=== PATIENT | female | born 1950 | race Caucasian/White ===

== ENCOUNTER 2023-09-19 04:58 | Inpatient (IN) | payer MEDICARE, MEDICAID ==
[2023-09-19] VITALS (715 sets, daily range): BP systolic 104–145; BP diastolic 51–63; PULSE 61–66; TEMP 97.1–99.1; O2SAT 81–99
[~2023-09-19] VITALS: Ht 177.8 cm; Wt 78.7 kg
[2023-09-19] MEDS ORDERED: PHOSPHA 250 NEU1 TAB PO (08:45)
[2023-09-19] MEDS ORDERED: CELLCEPT 5500 MG/TAB PO (08:47)
[2023-09-19] MEDS ORDERED: CALCITRIOL PO (08:55)
[2023-09-19] MEDS ORDERED: PROGRAF 1MG1 MG PO (08:55)
[2023-09-19 08:59] LABS: HEMATOCRIT 37.6 % (37.0-47.0); HEMOGLOBIN 12.5 g/dl (12.5-16.0); MEAN CELL VOLUME 87 fl (80.0-100.0); MEAN CORPUSCULAR HEMOGLOBIN 29 pg (27-31); MEAN CORPUSCULAR HGB CONC 33 g/dl (33.0-37.0); MEAN PLATELET VOLUME 13.3 fl (7.4-10.4); PLATELET COUNT 199 K/mm3 (130-400); RED BLOOD COUNT 4.33 M/mm3 (4.10-5.30); REDCELL DISTRIBUTION WIDTH-CV 13.6 % (11.5-14.5)
[2023-09-19] MEDS ORDERED: SIMBRINZA 0.2%-18 ML OU (09:01)
[2023-09-19] MEDS ORDERED: LANTUS SOLOS100 U/ML SQ (09:02)
[2023-09-19] MEDS ORDERED: XALATAN EYE DROPS OU (09:03)
[2023-09-19] MEDS ORDERED: ISTALOL 2.5 ML2.5 ML OS (09:03)
[2023-09-19 09:05] LABS: INR 1.1 (0.8-3.0); PROTHROMBIN TIME 12.2 SECONDS (9.7-12.8)
[2023-09-19 09:14] LABS: C-REACTIVE PROTEIN 13.25 mg/dL (0.00-0.50); MAGNESIUM 1.7 mg/dL (1.6-2.6); PHOSPHOROUS 1.7 mg/dL (2.3-4.7)
[2023-09-19 09:29] LABS: PARTIAL THROMBOPLASTIN TIME 29.4 SECONDS (26.0-37.0)
[2023-09-19 09:42] LABS: BAND 12 % (0-10); LYMPHOCYTE 2 % (20.0-51.0); NEUTROPHILS 83 % (42.0-75.2)
[2023-09-19 09:44] LABS: PLATELET ESTIMATE DECREASED (NORMAL)
--- NOTE | 2023-09-19 09:59 | NUR ---
PATIENT SATURATION THIS AM HAS BEEN 88 TO 92% ON OXYMASK. PATIENT HAS BEEN PLACED ON AIRVO AND SEEMS TO BE TOLERATING WELL. LABS HAVE SINCE BEEN DRAWN, ABG.
[2023-09-19 11:36] LABS: CALCIUM 8.9 mg/dL (8.4-10.2); CREATININE, serum 1.29 mg/dL (0.57-1.11); POTASSIUM 4.8 mmol/L (3.5-4.5)
[2023-09-19 11:45] LABS: TROPONIN-I 0.04 ng/mL (0.00-0.033)
[2023-09-19 14:40] LABS: PROCALCITONIN 0.09 ng/mL (0.00-0.09)
--- NOTE | 2023-09-19 19:33 | NUR ---
REPORT RECEIVED FROM ALAYNA GONSALES. PT RESTING IN BED AT THIS TIME, BED IN LOW POSITION, CALL LIGHT WITHIN REACH, AND VSS. NO NEEDS ANTICIPATED AT THIS TIME.
--- NOTE | 2023-09-19 20:07 | NUR ---
PT RESTING IN BED AND IS A&O AT THIS TIME. 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 VSS. CARE PLAN AND GOALS REVIEWED AT THIS TIME. BED IN LOW POSITION, CALL LIGHT IN REACH, AND ALL NEEDS MET AT THIS TIME. ENCOURAGED TO USE CALL LIGHT FOR NEEDS.
[2023-09-19 20:36] LABS: COLLECTION METHOD CLEAN CATCH
[2023-09-19 20:41] LABS: URINE APPEARANCE Clear (CLEAR/HAZY); URINE BLOOD Negative (NEGATIVE); URINE COLOR Yellow (YELLOW); URINE GLUCOSE Negative (NEGATIVE); URINE KETONE Negative (NEGATIVE); URINE NITRATE Negative (NEGATIVE); URINE PROTEIN(semi-quant) 3+ (NEGATIVE)
[2023-09-19 20:50] LABS: URINE RBC 0-2 /hpf (0-2)
[2023-09-19 20:51] LABS: URINE BACTERIA Rare /hpf (NONE SEEN)
--- NOTE | 2023-09-19 21:32 | NUR ---
DURING INITAIL SHIFT ASSESSMENT PT REPORTS SHE IS "BLIND". PT NOTED TO OPEN EYES AND FOLLOW RN I WALK AROUND THE ROOM. PT REPORTS SHE HAS A VERY SMALL AMOUNT OF VISION.
[2023-09-20] VITALS (578 sets, daily range): BP systolic 143–164; BP diastolic 70–79; PULSE 55–72; TEMP 97.9–98.2; O2SAT 81–98
--- NOTE | 2023-09-20 | NUR ---
VSS WITH AN UNSUSTAINED SPO2 OF 88-89%. PT WILL DROP TO 88-89% FOR 10-30 SECONDS AND THEN BACK TO 90-93%. RT NOTIFIED AND PLANS TO COME ASSESS.
--- NOTE | 2023-09-20 03:05 | NUR ---
PT ON 50L, 85% VIA BIPAP AT THIS TIME AND O2 SAT BOUNCING FROM 88-90%. RT NOTIFIED AND REPORT THEY WILL COME TO ASSESS AND TREAT.
[2023-09-20 05:42] LABS: HEMATOCRIT 38.1 % (37.0-47.0); HEMOGLOBIN 12.5 g/dl (12.5-16.0); MEAN CELL VOLUME 87 fl (80.0-100.0); MEAN CORPUSCULAR HEMOGLOBIN 29 pg (27-31); MEAN CORPUSCULAR HGB CONC 33 g/dl (33.0-37.0); MEAN PLATELET VOLUME 14.6 fl (7.4-10.4); PLATELET COUNT 187 K/mm3 (130-400); RED BLOOD COUNT 4.36 M/mm3 (4.10-5.30); REDCELL DISTRIBUTION WIDTH-CV 13.7 % (11.5-14.5)
[2023-09-20 06:06] LABS: CALCIUM 8.6 mg/dL (8.4-10.2); CREATININE, serum 1.24 mg/dL (0.57-1.11); MAGNESIUM 2.2 mg/dL (1.6-2.6); POTASSIUM 5.3 mmol/L (3.5-4.5)
[2023-09-20 07:00] LABS: BAND 8 % (0-10); LYMPHOCYTE 3 % (20.0-51.0); NEUTROPHILS 88 % (42.0-75.2); OVALOCYTES 1+; PLATELET ESTIMATE NORMAL (NORMAL)
[2023-09-20 07:01] LABS: BURR CELLS 1+
--- NOTE | 2023-09-20 09:00 | NUR ---
RECEIVED REPORT FROM NIGHTSHIFT RNPAVITHRA. PATIENT RESTING IN BED WITH EYES CLOSED. BED IN A LOW POSITION. CALL LIGHT WITHIN REACH. LABS, MEDICATIONS, AND ORDERS ALL REVIEWED AND ACKNOWLEDGED.
--- NOTE | 2023-09-20 09:07 | NUR ---
HEAD TO TOE ASSESSMENT COMPLETED. PATIENT ALERT AND ORIENTED. PATIENT REMAINS MAXED ON AIRVO AT THIS TIME. PUPILS EQUAL AND REACTIVE. HEART SOUNDS REGULAR WITH S1 AND S2 NOTED. LUNG SOUNDS ARE COARSE BILATERALLY WITH DIMINISHED SOUNDS IN THE BASES BILATERALLY. BOWEL SOUNDS ACTIVE IN ALL QUADRANTS. PATIENT USES BEDSIDE COMMODE TO VOID WITH 1-2X ASSIST. PATIENT'S PULSES ARE PRESENT AND EQUAL BILATERALLY IN UPPER AND LOWER EXTREMITIES. PATIENT ABLE TO TAKE MEDICATIONS WITHOUT ANY PROBLEMS. BED IN A LOW POSITION. CALL LIGHT WITHIN REACH.
[2023-09-21] VITALS (502 sets, daily range): BP systolic 136–161; BP diastolic 59–84; PULSE 54–78; TEMP 97.7–98.6; O2SAT 90–100
[2023-09-21 06:23] LABS: BASO % 0.1 % (0.0-2.0); GRAN # 11.1 K/mm3 (1.4-6.5); GRAN % 88.2 % (42.2-75.2); HEMATOCRIT 37.9 % (37.0-47.0); HEMOGLOBIN 12.8 g/dl (12.5-16.0); LYMPH # 0.5 K/mm3 (1.2-3.4); LYMPH % 3.9 % (20.0-51.0); MEAN CELL VOLUME 87 fl (80.0-100.0); MEAN CORPUSCULAR HEMOGLOBIN 29 pg (27-31); MEAN CORPUSCULAR HGB CONC 34 g/dl (33.0-37.0); MEAN PLATELET VOLUME 14.2 fl (7.4-10.4); MONO # 0.8 K/mm3 (0.1-0.6); MONO % 6.5 % (1.7-9.3); PLATELET COUNT 213 K/mm3 (130-400); RED BLOOD COUNT 4.38 M/mm3 (4.10-5.30); REDCELL DISTRIBUTION WIDTH-CV 13.9 % (11.5-14.5)
[2023-09-21 06:36] LABS: CALCIUM 8.5 mg/dL (8.4-10.2); CREATININE, serum 1.31 mg/dL (0.57-1.11); POTASSIUM 4.9 mmol/L (3.5-4.5)
--- NOTE | 2023-09-21 09:24 | NUR ---
PATIENT SEEMS TO BE RESTING WITH EYES CLOSED, AIRVO ON 54L, SATURATIONS ARE CONSISTENTLY BETWEEN 92 AND 95%. MINIMAL SHORTNESS OF BREATH WITH ACTIVITY, DENIES CHEST PAIN. INFUSING ZOSYN AT THIS TIME, BOTH IVS FLUSH WELL, PATIENT IS VOIDING WITHOUT DIFFICULTY. CONTINUING TO MONITOR FOR SIGNIFICANT CHANGES.
[2023-09-21] MEDS ORDERED: MAG-OX 400400 MG/TAB PO (11:18)
[2023-09-21] MEDS ORDERED: NEURONTIN100 MG/CAP PO ×2 (11:18)
[2023-09-21] MEDS ORDERED: COREG 6.256.25 MG/TA PO (11:19)
[2023-09-21] MEDS ORDERED: PLAVIX 75MG TAB75 MG PO (11:19)
[2023-09-21] MEDS ORDERED: PROTONIX 40MG T40 MG PO (11:19)
[2023-09-21] MEDS ORDERED: LIPITOR 40MG TA40 MG PO (11:19)
[2023-09-21] MEDS ORDERED: PREDNISONE 5MG5 MG PO (11:25)
[2023-09-21] MEDS ORDERED: LEVEMIR FLEX100 U/ML SQ (11:25)
--- NOTE | 2023-09-21 15:00 | NUR ---
Patient had a moment of chest tightness and shortness of air after getting to the bedside commode. RT was called and albuterol was given. Patient stated that the albuterol helped and that she no longer has chest pain or shortness of breath.
--- NOTE | 2023-09-21 19:05 | NUR ---
Received report from ALAYNA Laguerre.
--- NOTE | 2023-09-21 21:05 | NUR ---
Patient resting quietly in bed. Remains on AirVo receiving 50L 90% FiO2, tolerating well. Denies pain or discomfort. Vitals within normal limits. Required heavy one-person assist to pivot to and from commode. No further needs noted at this time.
[2023-09-22] VITALS (7 sets, daily range): BP systolic 105–170; BP diastolic 68–86; PULSE 57–74; TEMP 97.7–98.3; O2SAT 93
[2023-09-22 04:46] LABS: BASO % 0.1 % (0.0-2.0); GRAN # 8.9 K/mm3 (1.4-6.5); GRAN % 85.2 % (42.2-75.2); HEMATOCRIT 37.2 % (37.0-47.0); HEMOGLOBIN 12.4 g/dl (12.5-16.0); LYMPH # 0.5 K/mm3 (1.2-3.4); MEAN CELL VOLUME 87 fl (80.0-100.0); MEAN CORPUSCULAR HEMOGLOBIN 29 pg (27-31); MEAN CORPUSCULAR HGB CONC 33 g/dl (33.0-37.0); MONO # 0.9 K/mm3 (0.1-0.6); MONO % 8.3 % (1.7-9.3); PLATELET COUNT 218 K/mm3 (130-400); RED BLOOD COUNT 4.28 M/mm3 (4.10-5.30); REDCELL DISTRIBUTION WIDTH-CV 13.7 % (11.5-14.5)
[2023-09-22 05:04] LABS: CALCIUM 8.5 mg/dL (8.4-10.2); CREATININE, serum 1.3 mg/dL (0.57-1.11); POTASSIUM 4.6 mmol/L (3.5-4.5)
--- NOTE | 2023-09-22 07:00 | NUR ---
Report received from ALAYNA Goodson; patient currently resting in bed and remains on Airvo. Patient has no meds or fluids running through her peripheral lines. Patient has no other lines or tubes in place at this time. Patient's vital signs are within normal limits this morning, although patient desats if cannula is taken off.
--- NOTE | 2023-09-22 08:52 | NUR ---
rolled materials worker called pt's dtr, Mayra [phone] due to being in isolation. Mayra informed SW her mother lives alone in [place]. She reports that the PCP is Dr. Baker and she obtains medications from [facility] with some difficulty. SW discussed [facility] and recieving samples/coupons from the prescribing provider to lower costs. Pt uses a [facility] for DME. She is independent with most ADLS, but dtr reports she needs help with bathing and cooking. Pt does not have a DPOA-HC, is not , and has 3 children. ODILON advised what a DPOA-HC is for her mother and the need to discuss it. Mayra informed SW pt wants to return home, but is aware that she will need more help. ODILON discussed options for placement such as SNF. SW provided her number to daughter.
[2023-09-23] VITALS (150 sets, daily range): BP systolic 153–175; BP diastolic 63–82; PULSE 60–65; TEMP 97.7–98.4; O2SAT 70–99
[2023-09-23 05:53] LABS: BASO % 0.2 % (0.0-2.0); EOS % 0.2 % (0.0-4.0); GRAN # 9.1 K/mm3 (1.4-6.5); HEMATOCRIT 39.5 % (37.0-47.0); HEMOGLOBIN 12.6 g/dl (12.5-16.0); LYMPH # 0.5 K/mm3 (1.2-3.4); LYMPH % 4.4 % (20.0-51.0); MEAN CELL VOLUME 89 fl (80.0-100.0); MEAN CORPUSCULAR HEMOGLOBIN 28 pg (27-31); MEAN CORPUSCULAR HGB CONC 32 g/dl (33.0-37.0); MONO # 0.6 K/mm3 (0.1-0.6); MONO % 5.8 % (1.7-9.3); PLATELET COUNT 206 K/mm3 (130-400); RED BLOOD COUNT 4.45 M/mm3 (4.10-5.30); REDCELL DISTRIBUTION WIDTH-CV 13.6 % (11.5-14.5)
[2023-09-23 06:08] LABS: CALCIUM 8.5 mg/dL (8.4-10.2); CREATININE, serum 1.09 mg/dL (0.57-1.11); MAGNESIUM 1.8 mg/dL (1.6-2.6); POTASSIUM 4.3 mmol/L (3.5-4.5)
--- NOTE | 2023-09-23 13:49 | NUR ---
cut in worker was informed by Dr. Josef Castillo that patient would need a [facility] referral. SW faxed a referral to [facility].
--- NOTE | 2023-09-23 15:03 | NUR ---
perinatal social worker recieved a call from ALAYNA Ferguson requesting SW speak to family about [facility] referral. She advised information had been provided already. ODILON spoke with many family members and dtrMayra regarding [facility]. They inquired about why pt needs to go, potential discharge date, next steps, locations, and transport options. ODILON advised she would likely go by EMS transport once a location is determined and this is due to her increasing need for oxygenation on Airvo. The family was agreeable. They wanted to add other contacts to the visitor list. ODILON relayed to dtr to inform nurse's station of this. ODILON spoke with ALAYNA Ferguson and relayed the conversation. She agreed pt wll likely transport by EMS on Bipap.
--- NOTE | 2023-09-23 16:02 | NUR ---
yard warehouse worker recieved a call from Merissa at [facility] who informs SW they can accept patient tomorrow. ODILON advised she will set up transport by EMS. ODILON informed Dr. Josef Castillo and Charge Nurse Phyllis. ODILON contacted [facility] to arrange a 10am transport. ODILON provided all information. ODILON confirmed patient will go to [facility], room 126, and recieving physician is Dr. Solis. ODILON updated [facility]. ODILON spoke with carol ann Nunez who was agreeable to this and will let the family know. Discharge Plan: 10am [facility] to [facility]
[2023-09-24] VITALS (32 sets, daily range): BP systolic 119–152; BP diastolic 58–84; PULSE 61–68; TEMP 97.2–98.3; O2SAT 92–95
[2023-09-24 05:46] LABS: BASO % 0.2 % (0.0-2.0); GRAN # 8.2 K/mm3 (1.4-6.5); GRAN % 89.3 % (42.2-75.2); HEMATOCRIT 37.7 % (37.0-47.0); HEMOGLOBIN 12.4 g/dl (12.5-16.0); LYMPH # 0.4 K/mm3 (1.2-3.4); LYMPH % 4.5 % (20.0-51.0); MEAN CELL VOLUME 86 fl (80.0-100.0); MEAN CORPUSCULAR HEMOGLOBIN 28 pg (27-31); MEAN CORPUSCULAR HGB CONC 33 g/dl (33.0-37.0); MONO # 0.5 K/mm3 (0.1-0.6); PLATELET COUNT 197 K/mm3 (130-400); RED BLOOD COUNT 4.38 M/mm3 (4.10-5.30); REDCELL DISTRIBUTION WIDTH-CV 13.3 % (11.5-14.5)
[2023-09-24 05:57] LABS: CALCIUM 8.7 mg/dL (8.4-10.2); CREATININE, serum 1.14 mg/dL (0.57-1.11); MAGNESIUM 1.8 mg/dL (1.6-2.6); POTASSIUM 4.4 mmol/L (3.5-4.5)
--- NOTE | 2023-09-24 07:13 | NUR ---
Report received from ALAYNA Botello; patient currently resting in bed with no fluids or meds running through her peripheral line. Patient is on Airvo maxed out at 60 lpm and 90%; patient has no other lines or tubes in place at this time. Patient should be leaving this morning for [facility]; all vital signs are within normal limits this morning.
[2023-09-24] MEDS ORDERED: LOVENOX 8080 MG/0.8 SQ (08:55)
[2023-09-24] MEDS ORDERED: RT Anoro Ellipta IH (08:55)
[2023-09-24] MEDS ORDERED: RT Albuterol HFA MDI IH ×2 (08:55)
[2023-09-24] MEDS ORDERED: ALPHAGAN 10 ML10 ML OP (08:56)
[2023-09-24] MEDS ORDERED: [UNRECOGNIZED DRUG - OTHER] IH (08:56)
[2023-09-24] MEDS ORDERED: CELLCEPT 250MG250 MG PO (08:57)
[2023-09-24] MEDS ORDERED: PROGRAF 1MG1 MG PO (08:57)
[2023-09-24] MEDS ORDERED: DOXYCYCLINE 10100 MG PO (08:59)
[2023-09-24] MEDS ORDERED: LIPITOR 40MG TA40 MG PO (09:02)
[2023-09-24] MEDS ORDERED: COREG 6.256.25 MG/TA PO (09:02)
[2023-09-24] MEDS ORDERED: MAG-OX 400400 MG/TAB PO (09:03)
[2023-09-24] MEDS ORDERED: DEXAMETHASON10 MG/ML IV (09:04)
--- NOTE | 2023-09-24 09:27 | NUR ---
fruit harvest worker faxed discharge orders to Merissa at [facility]. ALAYNA Whittington completed [facility] forms for transfer. ODILON called Mayra maharaj and completed IM from Medicare. Copy in packet and original in chart. Discharge Plan: 10am [facility]. transport to [facility] [place]
--- NOTE | 2023-09-24 10:15 | NUR ---
Reported off to ALAYNA Whipple, at [facility] in , phone number [phone]. Patient picked up by [facility] and taken via ambulance; patient was taken on oxygen and zosyn running through her peripheral IV. Patient's family was in the room when patient left and left with patient's belongings and will meet her there; patient went to room 126. Patient's vital signs were within normal limits and patient was stable upon discharge.
--- NOTE | 2023-09-24 10:57 | NUR ---
Social was informed by Merissa at [facility] they do not have a SS for patient. She is also requesting a copy of the insurance card as a new requirement. ODILON spoke with [employer] Laurel who advised there is not an insurance card or SS on file for pt. ODILON informed Merissa santamaria [facility] of this. ODILON left a voicemail with registration at [facility]. ODILON spoke with dtrMayra who states patient can recall her SS and she can take pt's insurance card with her to [facility]. ODILON informed Merissa santamaria [facility] of this.
== END 2023-09-24 10:02 | DRG 177 ==
LOC: IMCU 04:58 → ICU 05:39
PROVIDERS: Internal Medicine Pulmonary Disease; Nurse Practitioner Primary Care; ADMIT Internal Medicine
PROC: XW033E5 Introduction of Remdesivir Anti-infective into Peripheral Vein, Percutaneous Approach, New Technology Group 5 (ICD-10-PCS; principal; 2023-09-19)
PROC: 5A0955A Assistance with Respiratory Ventilation, Greater than 96 Consecutive Hours, High Flow/Velocity Cannula (ICD-10-PCS; 2023-09-19)
PROC: 5A09357 Assistance with Respiratory Ventilation, Less than 24 Consecutive Hours, Continuous Positive Airway Pressure (ICD-10-PCS; 2023-09-24)
DX: U07.1 COVID-19 (principal); J12.82 Pneumonia due to coronavirus disease 2019; J96.01 Acute respiratory failure with hypoxia; Z94.0 Kidney transplant status; D84.9 Immunodeficiency, unspecified; N17.9 Acute kidney failure, unspecified; I24.89 Other forms of acute ischemic heart disease; E87.20 Acidosis, unspecified; I13.0 Hypertensive heart and chronic kidney disease with heart failure and stage 1 through stage 4 chronic kidney disease, or unspecified chronic kidney disease; Z66 Do not resuscitate; K21.9 Gastro-esophageal reflux disease without esophagitis; E11.319 Type 2 diabetes mellitus with unspecified diabetic retinopathy without macular edema; E11.40 Type 2 diabetes mellitus with diabetic neuropathy, unspecified; D69.6 Thrombocytopenia, unspecified; E78.5 Hyperlipidemia, unspecified; I50.9 Heart failure, unspecified; R79.89 Other specified abnormal findings of blood chemistry; E87.5 Hyperkalemia; E11.22 Type 2 diabetes mellitus with diabetic chronic kidney disease; N18.32 Chronic kidney disease, stage 3b; M62.81 Muscle weakness (generalized); H91.93 Unspecified hearing loss, bilateral; E11.51 Type 2 diabetes mellitus with diabetic peripheral angiopathy without gangrene; Z79.52 Long term (current) use of systemic steroids; Z90.710 Acquired absence of both cervix and uterus; Z90.49 Acquired absence of other specified parts of digestive tract; Z89.431 Acquired absence of right foot; Z79.4 Long term (current) use of insulin; Z79.899 Other long term (current) drug therapy
CPT/HCPCS: A9540-JZ; J0248; J1100; J1650; J1815; J2543; J3475; J7050; J7507; J7517; Q3014